=== PATIENT | female | born 1990 | race Caucasian/White ===

== ENCOUNTER 2016-07-24 07:13 | Day surgery (SDC) | payer OTHER ==
[~2016-07-24] VITALS: Ht 162.6 cm; Wt 59.0 kg
[~2016-07-24 07:13] MED LIST: 0.9% Sodium Chloride 1,000 ML IV SCH; BUPR150T9 PO; Sodium Chloride LOK Flush 10 mL Syringe IV PRN; fentaNYL-PF 50 mCg/mL 2 mL Inj IVPUSH PRN
[2016-07-24] MEDS ORDERED: LEVO1TAB71 PO (07:35)
[2016-07-24 07:36] VITALS: BP 131/88; PULSE 81; RESP 16; O2SAT 99
[2016-07-24 08:11] VITALS: BP 139/85; PULSE 75; O2SAT 96
[2016-07-24 08:24] VITALS: BP 134/84; PULSE 74; O2SAT 100
--- NOTE | 2016-07-24 08:57 | ENDO ---
[address] [address] ENDOSCOPY PROCEDURE PATIENT: JASPAL OLIVARES : 1990 MR#: [id number] ADMIT: 07/24/2016 JOB ID: [id number] DATE OF SERVICE: 07/24/2016 TYPE OF OPERATION: Esophagogastroduodenoscopy with biopsy. PREOPERATIVE DIAGNOSIS: Epigastric pain. POSTOPERATIVE DIAGNOSIS: Normal upper endoscopy, status post biopsy. ANESTHESIA: Fentanyl 150 mcg, Versed 5 mg IV administered. COMPLICATIONS: None. BLOOD LOSS: Minimal. DESCRIPTION OF PROCEDURE: After risks and benefits were explained to the patient, informed consent was obtained. After anesthesia administered, upper endoscope was then inserted in the mouth, intubating into the esophagus, stomach, second portion of duodenum. Mucosa carefully examined. After procedure was done, the scope withdrawn and procedure terminated. FINDINGS: Upon inspection of the esophagus, the esophagus was normal without masses, ulcers, or lesions. Z-line located 40 cm from incisors. Upon entering the stomach, the stomach was normal without masses, ulcers, or lesions. Retroflexion was normal. Duodenal bulb, first and second portions were normal. Biopsies were taken of the antrum and body of the stomach. IMPRESSION: Normal upper endoscopy, status post biopsy. RECOMMENDATIONS: Await pathology results. Follow up in GI clinic as needed.
--- NOTE | 2016-07-25 14:09 | PATH ---
SURGICAL PATHOLOGY Attending Physician:Tanner Chinchilla MD CASE STATUS: Signed Out PATIENT NAME: JASPAL OLIVARES PID: [id number] : 1990 DATE COLLECTED:07/24/2016 16:28 SPECIMEN: 1: Stomach, Antrum, Biopsy 2: Gastric, Biopsy CLINICAL HISTORY: 1).ANTRUM BIOPSY 2).GASTRIC BODY BIOPSY FINAL DIAGNOSIS: 1.ANTRUM BIOPSY: MILD CHRONIC GASTRITIS INVOLVING ANTRAL MUCOSA. Negative for evidence of Helicobacter. Negative for intestinal metaplasia. Negative for dysplasia and malignancy. 2.GASTRIC BODY BIOPSY: MILD CHRONIC GASTRITIS INVOLVING FUNDIC MUCOSA. Negative for evidence of Helicobacter. Negative for intestinal metaplasia. Negative for dysplasia and malignancy. ICD10 CODE K29.70 GROSS DESCRIPTION: The specimen is received in two formalin filled containers labeled with the patient's name. 1). The specimen is sublabeled "antrum" and consists of 2 portions of tissue which aggregate to 0.3 x 0.3 x 0.2 CM. The specimen is entirely submitted in cassette 1A. 2). The specimen is sublabeled "gastric body" and consists of 3 portions of tissue which aggregate to 0.5 x 0.3 x 0.2 CM. The specimen is entirely submitted in cassette 2A. 07/24/2016 [facility] MICRO DESCRIPTION: See diagnosis. ICD-9 CODES: CPT CODES: 1: 09982 2: 58189 Electronically Signed Out Nadeem Gordon MD [facility] [address], [place] [address] Technical component performed at [facility], [address] [place] [address] Ave[address], [address]
== END 2016-07-24 23:59 | disposition home or self-care (01) ==
LOC: END 07:13
PROVIDERS: ATTEND Internal Medicine Gastroenterology
DX: K29.50 Unspecified chronic gastritis without bleeding (principal)
CPT/HCPCS: 43239; G0500; J2250; J3010; J7030